=== PATIENT | male | born 1940 | race Caucasian/White ===

== ENCOUNTER 2021-08-04 09:34 | Day surgery (SDC) | payer MEDICARE, BC ==
[2021-08-04] VITALS (10 sets, daily range): BP systolic 125–144; BP diastolic 58–78
[~2021-08-04] VITALS: Ht 177.8 cm; Wt 92.0 kg
[2021-08-04] MEDS ORDERED: normal saline 1,000 ML IV SCH (09:55)
[2021-08-04] MEDS ORDERED: diphenhydrAMINE 25mg capsule PO PRN (09:55)
[2021-08-04] MEDS ORDERED: LANS30CA56 PO (10:35)
[2021-08-04] MEDS ORDERED: INSU100I31 SQ (10:35)
[2021-08-04] MEDS ORDERED: DILT-35 PO (10:35)
[2021-08-04] MEDS ORDERED: CAND32TA22 PO (10:35)
[2021-08-04] MEDS ORDERED: APIX5TAB3 PO (10:35)
[2021-08-04] MEDS ORDERED: TORS20TA3 PO (10:35)
[2021-08-04] MEDS ORDERED: SITA50TA PO (10:35)
[2021-08-04] MEDS ORDERED: TAMSULOSIN PO (10:35)
[2021-08-04] MEDS ORDERED: ATOR-2 PO (10:35)
[2021-08-04] MEDS ORDERED: NOVLG SQ (10:35)
[2021-08-04] MEDS ORDERED: POTASSIUM 8 MEQ PO (10:36)
[2021-08-04 10:45] LABS: EOSINOPHILS # (AUTO) 0.3 X10'3 (0-0.9); HEMOGLOBIN 11.9 g/dl (14.0-17.9); MEAN PLATELET VOLUME 8.6 FL (7.4-10.4); MONOCYTES # (AUTO) 0.5 X10'3 (0-0.9)
[2021-08-04 10:46] LABS: BASOPHILS # (AUTO) 0.1 X10'3 (0-0.2); BASOPHILS % (AUTO) 2.4 % (0-1); EOSINOPHILS % (AUTO) 5.4 % (0-6); HEMATOCRIT 35.1 % (42.0-52.0); LYMPHOCYTES # (AUTO) 0.3 X10'3 (1.1-4.8); LYMPHOCYTES % (AUTO) 5.8 % (21-51); MEAN CORPUSCULAR HEMOGLOBIN 29.7 PG (27.0-31.0); MEAN CORPUSCULAR HGB CONC 33.8 g/dL (33.0-36.5); MONOCYTES % (AUTO) 9.3 % (2-12); NEUTROPHILS # (AUTO) 4.5 X10'3 (1.8-7.7); NEUTROPHILS % (AUTO) 77.1 % (42-75); PLATELET COUNT 209 X10'3 (140-440); RED BLOOD COUNT 3.99 X10'6 (4.70-6.10); RED CELL DISTRIBUTION WIDTH 14.8 % (11.5-14.5); WHITE BLOOD COUNT 5.9 X10'3 (4.5-11.0)
[2021-08-04 10:52] LABS: ALBUMIN 3.4 G/DL (3.4-5.0); ANION GAP 7 (8-16); BLOOD UREA NITROGEN 29 MG/DL (7-18); BUN/CREATININE RATIO 20.9 (5.4-32.0); CALCIUM 8.6 MG/DL (8.5-10.1); CHLORIDE 102 MMOL/L (99-107); CREATININE 1.39 MG/DL (0.60-1.10); GLUCOSE 231 MG/DL (70-104); POTASSIUM 3.9 MMOL/L (3.5-5.1); SODIUM 136 MMOL/L (135-145); TOTAL CARBON DIOXIDE 26.6 MMOL/L (24-32); eGFR 49 ML/MIN
[2021-08-04] MEDS ORDERED: fentaNYL/PF 50MCG/1 ML 2ML syringe ONE (10:57)
[2021-08-04] MEDS ORDERED: iohexol 350MG/ML 100ml bottle IV ONE ×2 (10:57→12:25)
[2021-08-04] MEDS ORDERED: midazolam 1 mg/ML 2ml injection ONE ×2 (10:57→11:44)
[2021-08-04] MEDS ORDERED: LIDOcaine 1% (10mg/ml)w/preservative injection 20ml MDV ONE ×2 (10:57→11:44)
[2021-08-04] MEDS ORDERED: heparin 1,000unit/ml 10ml vial 10 ML ONE (10:57)
[2021-08-04] MEDS ORDERED: iohexol 350 MG/ML 50ML vial IV ONE (10:57)
[2021-08-04] MEDS ORDERED: ticagrelor 90mg tablet ONE (13:11)
[2021-08-04] MEDS ORDERED: proCHLORperazine 10 MG/2 ml inj IV PRN (13:50)
[2021-08-04] MEDS ORDERED: HYDROcodone/acetaminophen 5mg/325mg tablet PO PRN (13:50)
[2021-08-04] MEDS ORDERED: ondansetron/PF 4mg/2ml inj IV PRN (13:50)
[2021-08-04] MEDS ORDERED: HYDROcodone/acetaminophen 10/325mg tab PO PRN (13:50)
== END 2021-08-04 17:25 | disposition home or self-care (01) ==
LOC: SSTAY O 09:34
PROVIDERS: ATTEND Internal Medicine Cardiovascular Disease
DX: R07.89 Other chest pain (principal); R06.09 Other forms of dyspnea; I25.10 Atherosclerotic heart disease of native coronary artery without angina pectoris; I48.20 Chronic atrial fibrillation, unspecified; I08.3 Combined rheumatic disorders of mitral, aortic and tricuspid valves; I65.21 Occlusion and stenosis of right carotid artery; I10 Essential (primary) hypertension; E78.5 Hyperlipidemia, unspecified; E11.9 Type 2 diabetes mellitus without complications; Z79.899 Other long term (current) drug therapy
CPT/HCPCS: 80048; 82948; 83735; 85025; 85610; 93005; 93460; 93571; 93572; 99152; 99153; C1725; C1751; C1760; C1769; C1874; C1894; C9600; J1644; J2250; J3010; J3490; J7030; Q0163; Q9967; A4620; A6258

== ENCOUNTER 2021-09-29 09:30 | Outpatient (CLI) | payer MEDICARE, BC ==
[~2021-09-29] VITALS: Ht 175.3 cm; Wt 91.6 kg
[~2021-09-29 09:30] MED LIST: APIX5TAB3 PO; ATOR-2 PO; CAND32TA22 PO; DILT-35 PO; INSU100I31 SQ; LANS30CA56 PO; NOVLG SQ; POTASSIUM 8 MEQ PO; SITA50TA PO; TAMSULOSIN PO; TORS20TA3 PO
[2021-09-29 10:13] LABS: EOSINOPHILS # (AUTO) 0.2 X10'3 (0-0.9); LYMPHOCYTES # (AUTO) 0.2 X10'3 (1.1-4.8); MEAN CORPUSCULAR HGB CONC 32.9 g/dL (33.0-36.5); MEAN PLATELET VOLUME 8.1 FL (7.4-10.4); MONOCYTES # (AUTO) 0.6 X10'3 (0-0.9); RED BLOOD COUNT 3.02 X10'6 (4.70-6.10); RED CELL DISTRIBUTION WIDTH 16.9 % (11.5-14.5)
[2021-09-29 10:15] LABS: BASOPHILS # (AUTO) 0.1 X10'3 (0-0.2); BASOPHILS % (AUTO) 1.3 % (0-1); EOSINOPHILS % (AUTO) 2.4 % (0-6); HEMATOCRIT 26.4 % (42.0-52.0); HEMOGLOBIN 8.7 g/dl (14.0-17.9); LYMPHOCYTES % (AUTO) 3.8 % (21-51); MEAN CORPUSCULAR HEMOGLOBIN 28.8 PG (27.0-31.0); MEAN CORPUSCULAR VOLUME 87.6 FL (78-98); MONOCYTES % (AUTO) 9.4 % (2-12); NEUTROPHILS # (AUTO) 5.4 X10'3 (1.8-7.7); NEUTROPHILS % (AUTO) 83.1 % (42-75); PLATELET COUNT 232 X10'3 (140-440); WHITE BLOOD COUNT 6.5 X10'3 (4.5-11.0)
[2021-09-29 10:32] LABS: ALANINE AMINOTRANSFERASE 14 U/L (12-78); ALBUMIN 3.1 G/DL (3.4-5.0); ALKALINE PHOSPHATASE 122 IU/L (46-116); ANION GAP 7 (8-16); ASPARTATE AMINO TRANSFERASE 19 U/L (10-37); BILIRUBIN,TOTAL 1.5 MG/DL (0.1-1.0); BLOOD UREA NITROGEN 35 MG/DL (7-18); BUN/CREATININE RATIO 24.5 (5.4-32.0); CALCIUM 8.2 MG/DL (8.5-10.1); CHLORIDE 105 MMOL/L (99-107); CREATININE 1.43 MG/DL (0.60-1.10); GLUCOSE 194 MG/DL (70-104); POTASSIUM 3.8 MMOL/L (3.5-5.1); SODIUM 140 MMOL/L (135-145); TOTAL CARBON DIOXIDE 28.5 MMOL/L (24-32); TOTAL PROTEIN 6.3 G/DL (6.4-8.2); eGFR 47 ML/MIN
[2021-09-29 10:41] LABS: APTT 28 SECONDS (22-32)
[2021-09-29 10:49] LABS: ANISOCYTOSIS 1+; ELLIPTOCYTES 1+; PLATELET ESTIMATE NORMAL
[2021-09-29 10:50] LABS: BURR CELLS 1+
[2021-09-29 10:51] LABS: SCHISTOCYTES FEW
[2021-09-29] MEDS ORDERED: IODIXANOL 320 MG/ML INFUS..BTL 50ML IV ONE ×3 (11:45→12:40)
[2021-09-29] MEDS ORDERED: IODIXANOL 320 MG/ML INFUS..BTL 100ML IV ONE ×3 (11:45→12:40)
[2021-09-29] MEDS ORDERED: albuterol 2.5 MG/3 ML nebule NEB ONE (11:55)
== END 2021-09-29 23:59 | disposition home or self-care (01) ==
LOC: VAS 09:30
PROVIDERS: ATTEND Internal Medicine Cardiovascular Disease
DX: Z01.818 Encounter for other preprocedural examination (principal); I65.23 Occlusion and stenosis of bilateral carotid arteries; I74.3 Embolism and thrombosis of arteries of the lower extremities; K80.20 Calculus of gallbladder without cholecystitis without obstruction; N28.1 Cyst of kidney, acquired; I70.0 Atherosclerosis of aorta; K42.9 Umbilical hernia without obstruction or gangrene; M51.36 Other intervertebral disc degeneration, lumbar region; N32.3 Diverticulum of bladder; I70.8 Atherosclerosis of other arteries; I70.1 Atherosclerosis of renal artery; K55.1 Chronic vascular disorders of intestine; E04.2 Nontoxic multinodular goiter; R91.1 Solitary pulmonary nodule; R59.0 Localized enlarged lymph nodes; J98.11 Atelectasis; J90 Pleural effusion, not elsewhere classified; I51.7 Cardiomegaly; Z20.822 Contact with and (suspected) exposure to COVID-19; Z79.899 Other long term (current) drug therapy
CPT/HCPCS: 36415; 71046; 71275; 74174; 80053; 85008; 85025; 85610; 85730; 87635; 93880; 94060; 94727; 94729; 94760; C9803; Q9967

== ENCOUNTER 2021-10-19 12:34 | Outpatient (CLI) | payer MEDICARE, BC ==
[~2021-10-19] VITALS: Ht 177.8 cm; Wt 90.4 kg
[2021-10-19 13:46] LABS: BASOPHILS # (AUTO) 0.1 X10'3 (0-0.2); BASOPHILS % (AUTO) 1.9 % (0-1); EOSINOPHILS # (AUTO) 0.2 X10'3 (0-0.9); EOSINOPHILS % (AUTO) 2.8 % (0-6); HEMATOCRIT 29.2 % (42.0-52.0); HEMOGLOBIN 9.3 g/dl (14.0-17.9); LYMPHOCYTES # (AUTO) 0.3 X10'3 (1.1-4.8); LYMPHOCYTES % (AUTO) 4.4 % (21-51); MEAN CORPUSCULAR HEMOGLOBIN 26.8 PG (27.0-31.0); MEAN CORPUSCULAR HGB CONC 31.9 g/dL (33.0-36.5); MEAN CORPUSCULAR VOLUME 83.9 FL (78-98); MEAN PLATELET VOLUME 8.3 FL (7.4-10.4); MONOCYTES # (AUTO) 0.6 X10'3 (0-0.9); NEUTROPHILS # (AUTO) 5.7 X10'3 (1.8-7.7); NEUTROPHILS % (AUTO) 82.9 % (42-75); PLATELET COUNT 185 X10'3 (140-440); RED BLOOD COUNT 3.47 X10'6 (4.70-6.10); RED CELL DISTRIBUTION WIDTH 16.9 % (11.5-14.5); WHITE BLOOD COUNT 6.9 X10'3 (4.5-11.0)
[2021-10-19 14:29] VITALS: BP 146/69
--- NOTE | 2021-10-19 14:30 | NUR ---
Patient and his daughter were in the [facility] clinic today to consult with Dr. Barillas, Dr. James Gleason and Dr. Melara. [id number] completed. Vital signs measured. Patient education reviewed and questions answered.
[2021-10-19 14:31] VITALS: BP 126/59
[2021-10-26] MEDS ORDERED: APIX2.5T PO (10:25)
[2021-10-26] MEDS ORDERED: FLO0.4C PO (10:25)
[2021-10-26] MEDS ORDERED: CLOP75TA9 PO (13:02)
[2021-11-01] MEDS ORDERED: POTA8CAP20 PO (11:19)
== END 2021-10-19 23:59 | disposition home or self-care (01) ==
LOC: TAVR 12:34
PROVIDERS: ATTEND Internal Medicine Cardiovascular Disease
DX: I35.0 Nonrheumatic aortic (valve) stenosis (principal); R06.02 Shortness of breath; I65.29 Occlusion and stenosis of unspecified carotid artery
CPT/HCPCS: 36415; 85025

== ENCOUNTER 2021-11-02 06:29 | Inpatient (IN) | payer MEDICARE, BC ==
[2021-10-26 11:19] LABS: BASOPHILS # (AUTO) 0.1 X10'3 (0-0.2); EOSINOPHILS # (AUTO) 0.2 X10'3 (0-0.9); LYMPHOCYTES # (AUTO) 0.3 X10'3 (1.1-4.8); MONOCYTES # (AUTO) 0.5 X10'3 (0-0.9); NEUTROPHILS # (AUTO) 4.3 X10'3 (1.8-7.7); RED CELL DISTRIBUTION WIDTH 18.3 % (11.5-14.5)
[2021-10-26 11:21] LABS: EOSINOPHILS % (AUTO) 4.2 % (0-6); LYMPHOCYTES % (AUTO) 5.5 % (21-51); MEAN CORPUSCULAR HEMOGLOBIN 27.4 PG (27.0-31.0); MEAN CORPUSCULAR HGB CONC 32.8 g/dL (33.0-36.5); MEAN CORPUSCULAR VOLUME 83.6 FL (78-98); MEAN PLATELET VOLUME 8.5 FL (7.4-10.4); MONOCYTES % (AUTO) 9.4 % (2-12); NEUTROPHILS % (AUTO) 78.9 % (42-75); PRE OP HEMATOCRIT 31.5 % (42.0-52.0); PRE OP PLATELET COUNT 196 X10'3 (140-440); RED BLOOD COUNT 3.77 X10'6 (4.70-6.10)
[2021-10-26 11:27] LABS: CLARITY,URINE CLEAR (Clear); GLUCOSE, URINE NEGATIVE (Neg); KETONES,URINE NEGATIVE (Neg); LEUKOCYTE ESTERASE ,URINE NEGATIVE (Neg); NITRITES, URINE NEGATIVE (Neg); OCCULT BLOOD,URINE NEGATIVE (Neg); PH,URINE 6.5 (4.8-8.0); PROTEIN,URINE NEGATIVE (Neg); UROBILINOGEN,URINE 0.2 E.U/dL (0.2-1.0)
[2021-10-26 11:36] LABS: COLOR,URINE STRAW (Yellow); UA COLLECTION TYPE CLN CATCH MIDSTREAM
[2021-10-26 11:39] LABS: ALBUMIN 3.5 G/DL (3.4-5.0); ALKALINE PHOSPHATASE 103 IU/L (46-116); BLOOD UREA NITROGEN 33 MG/DL (7-18); BUN/CREATININE RATIO 22.8 (5.4-32.0); CALCIUM 8.6 MG/DL (8.5-10.1); CHLORIDE 98 MMOL/L (99-107); CREATININE 1.45 MG/DL (0.60-1.10); PRE OP ALT 11 U/L (30-65); PRE OP AST 17 U/L (10-37); PRE OP BILIRUB, TOTAL 1.3 MG/DL (0.0-1.0); PRE OP POTASSIUM 3.6 MMOL/L (3.4-5.1); PRE OP SODIUM 134 MMOL/L (135-145); TOTAL PROTEIN 7.1 G/DL (6.4-8.2); eGFR 46 ML/MIN
[2021-10-26 11:42] LABS: PRE OP INR 1.2 INR; PRE OP PROTIME 11.9 SECONDS (9.0-12.0)
[2021-10-26 11:50] LABS: ANISOCYTOSIS 2+; BURR CELLS 1+; ELLIPTOCYTES 1+; PLATELET ESTIMATE NORMAL; TOTAL CELLS COUNTED 100
[2021-10-26 11:51] LABS: SCHISTOCYTES FEW
[2021-10-26 11:57] LABS: PRE OP ANION GAP 11 (8-16); TOTAL CARBON DIOXIDE 24.6 MMOL/L (24-32)
[2021-10-26 12:03] LABS: HEMOGLOBIN A1C 8.3 % (4.5-6.2)
[2021-10-26 12:08] LABS: PRE OP GLUCOSE 228 MG/DL (70-104)
[2021-10-26 13:10] LABS: PRE OP HEMOGLOBIN 10.3 g/dL (14.0-17.9)
[2021-11-02] VITALS (21 sets, daily range): BP systolic 98–149; BP diastolic 41–68
[~2021-11-02] VITALS: Ht 177.8 cm; Wt 89.1 kg
[~2021-11-02 06:29] MED LIST changes: +APIX2.5T PO; -APIX5TAB3 PO; +CLOP75TA9 PO; -DILT-35 PO; +FLO0.4C PO; +POTA8CAP20 PO; -POTASSIUM 8 MEQ PO; -SITA50TA PO; -TAMSULOSIN PO; +aspirin 325mg tablet PO ONE; +cefazolin/dext.iso 2gm/50ml 50 ML IV ONE; +famotidine 20mg tablet PO ONE; +nitroPRUSSIDE sod inj. 50 MG in dextrose 5%-water 248 ML IV SCH; +ondansetron/PF 4mg/2ml inj IV PRN; +phenylephrine 50 MG in NS 250ml IVPB IV SCH; +ringers solution, lacted 1,000 ML IV SCH
[2021-11-02] MEDS ORDERED: protamine sulfate 10mg/ml inj. ONE (06:36)
--- NOTE | 2021-11-02 07:04 | NUR ---
PY BS 374 AT 0703. PT STATES HIS BS WAS "HIGH 300'S" AT 0500 AND HE TOOK NOVOLOG [address] BASHIR OF BS. NO ORDERS RECEIVED.
[2021-11-02] MEDS ORDERED: iohexol 350 MG/ML 50ML vial IV ONE (08:52)
[2021-11-02] MEDS ORDERED: iohexol 350MG/ML 100ml bottle IV ONE (08:52)
[2021-11-02] MEDS ORDERED: LIDOCAINE 1% w/preservative (10 MG/ML) inj. 10mL VIAL ONE (08:52)
[2021-11-02] MEDS ORDERED: heparin 1,000 UNITS/NS 500ml 1,500 ML ONE (08:52)
[2021-11-02] MEDS ORDERED: morphine 2 MG/ML inj. syringe IV PRN (09:00)
[2021-11-02] MEDS ORDERED: fentaNYL/PF 50MCG/1 ML 2ML syringe IV PRN ×2 (09:00)
[2021-11-02] MEDS ORDERED: ondansetron/PF 4mg/2ml inj IV PRN ×2 (09:00→10:15)
[2021-11-02] MEDS ORDERED: hydrALAZINE 20mg/ml inj. IV PRN ×2 (09:00→10:15)
[2021-11-02] MEDS ORDERED: morphine 4 MG/ML inj SYRINge IV PRN (09:00)
[2021-11-02] MEDS ORDERED: labetalol 20mg/4ml (5mg/ml) syringe IV PRN ×2 (09:00→10:15)
[2021-11-02] MEDS ORDERED: ringers solution, lacted 1,000 ML IV SCH (09:00)
[2021-11-02] MEDS ORDERED: MIDAZolam 1 MG/ML 5ML VIAL ONE (09:03)
[2021-11-02] MEDS ORDERED: fentaNYL/PF 50MCG/1 ML 2ML syringe ONE (09:03)
[2021-11-02] MEDS ORDERED: proCHLORperazine 10 MG/2 ml inj IV PRN (10:15)
[2021-11-02] MEDS ORDERED: DEXTROSE 15 GM of carb/4 tabs (each vial/BOTTLE has 4 tablets) PO PRN ×2 (10:15)
[2021-11-02] MEDS ORDERED: glucagon, human recombinant 1mg kit SUBCUT PRN (10:15)
[2021-11-02] MEDS ORDERED: insulin regular, human U-100 3ml vial - multi-dose SQ SCH (10:15)
[2021-11-02] MEDS ORDERED: ALPRAZolam 0.25mg tablet PO PRN (10:15)
[2021-11-02] MEDS ORDERED: MESSAGE TO PHARMACY PO ONE (10:15)
[2021-11-02] MEDS ORDERED: dextrose 50%-water 50ml dispensing syringe IV PRN ×2 (10:15)
[2021-11-02] MEDS ORDERED: acetaminophen 325mg tablet PO PRN (10:15)
[2021-11-02] MEDS ORDERED: docusate sod 100mg capsule PO PRN (10:15)
[2021-11-02] MEDS ORDERED: diphenhydrAMINE 25mg capsule PO PRN (10:15)
--- NOTE | 2021-11-02 10:31 | NUR ---
Received from OR via BED , accompanied by Anesthesiologist DR. BOGGS and report given by Anesthesiolgist. PT IS AWAKE AND TALKING. DENIES PAIN AT THIS TIME, RIGHT POSTERIOR TIBIAL PULSES BY DOPPLER LEFT POSTERIOR TIBIAL PULSES PALPABLE.RIGHT GROIN SITE, SOFT, DRESSING DRY AND INTACT.
--- NOTE | 2021-11-02 11:43 | NUR ---
PTS DRIPS STOPPED, BLOOD PRESSURE REMAINS STABLE AT THIS TIME. NO SIGNS OF BLEEDING IN LEFT GROIN, DRESSING REMAINS DRY AND INTACT. DISTAL PULSES REMAIN UNCHANGED.
--- NOTE | 2021-11-02 12:11 | NUR ---
PT TRANSFERRED TO ROOM 3015 PCU UNIT. REPORT GIVEN TO ROSETTE, PT TRANSFERRED WITH OXYGEN, CARDIAC, BP AND PULSE OX MONITOR. FAMILY NOTIFIED OF TRANSFER FROM THE WAITING ROOM. PT REMAINS ALERT AND ORIENTED AND PAINFREE. NO SIGNS OF BLEEDING OR SWELLING IN THE GROIN AREA.
--- NOTE | 2021-11-02 12:37 | NUR ---
Teodoro Evanstune 3015A up from recovery with an elevated blood sugar. could we get his insulin delivered by chance? Thank you, Adriana CALDERON Addendum: 11/02/21 at 1237 by Adriana Swift RN Message to pharmacy
[2021-11-02] MEDS: normal saline 1000ml 1,000 ML IV SCH ×2 (12:38→20:06)
[2021-11-02] MEDS: insulin Lispro (HumaLOG) vial - multi-dose SQ SCH ×3 (13:26→21:34)
[2021-11-02] MEDS: HYDROcodone/acetaminophen 5mg/325mg tablet PO PRN (13:56)
[2021-11-02] MEDS: sod chloride 0.9% 10ml flush syringe IV SCH (16:00)
[2021-11-02] MEDS: ceFAZolin 1GM/D5W- ADD-VANTAGE 50 ML IV SCH ×2 (16:29→23:55)
--- NOTE | 2021-11-02 18:00 | NUR ---
Patient in room PCU 3015. I have received report from Adriana BELTRÁN and had the opportunity to ask questions and assume patient care.
--- NOTE | 2021-11-02 18:37 | NUR ---
Problems reprioritized. Patient report given, questions answered & plan of care reviewed with Caridad BELTRÁN.
[2021-11-02] MEDS: vancomycin/NS 1 GM ADD-VANTAGE 250 ML IV SCH (20:06)
[2021-11-02] MEDS ORDERED: insulin glargine (Lantus) pen - multi-dose SQ SCH (21:00)
[2021-11-03] MEDS: sod chloride 0.9% 10ml flush syringe IV SCH ×2 (00:06→08:14)
[2021-11-03 06:06] VITALS: BP 114/44
[2021-11-03 06:36] LABS: BASOPHILS # (AUTO) 0.1 X10'3 (0-0.2); BASOPHILS % (AUTO) 1.3 % (0-1); EOSINOPHILS # (AUTO) 0.2 X10'3 (0-0.9); EOSINOPHILS % (AUTO) 2.3 % (0-6); HEMATOCRIT 28.6 % (42.0-52.0); HEMOGLOBIN 9.3 g/dl (14.0-17.9); LYMPHOCYTES # (AUTO) 0.2 X10'3 (1.1-4.8); LYMPHOCYTES % (AUTO) 2.5 % (21-51); MEAN CORPUSCULAR HEMOGLOBIN 27.8 PG (27.0-31.0); MEAN CORPUSCULAR HGB CONC 32.7 g/dL (33.0-36.5); MEAN CORPUSCULAR VOLUME 85.2 FL (78-98); MEAN PLATELET VOLUME 8.8 FL (7.4-10.4); MONOCYTES # (AUTO) 0.7 X10'3 (0-0.9); MONOCYTES % (AUTO) 8.4 % (2-12); NEUTROPHILS # (AUTO) 6.8 X10'3 (1.8-7.7); NEUTROPHILS % (AUTO) 85.5 % (42-75); PLATELET COUNT 157 X10'3 (140-440); RED BLOOD COUNT 3.35 X10'6 (4.70-6.10); RED CELL DISTRIBUTION WIDTH 19.3 % (11.5-14.5)
--- NOTE | 2021-11-03 06:36 | NUR ---
Problems reprioritized. Patient report given, questions answered & plan of care reviewed with CASEY BELTRÁN.
[2021-11-03 06:54] LABS: ALANINE AMINOTRANSFERASE 10 U/L (12-78); ALBUMIN 2.8 G/DL (3.4-5.0); ALKALINE PHOSPHATASE 83 IU/L (46-116); ANION GAP 9 (8-16); ASPARTATE AMINO TRANSFERASE 17 U/L (10-37); BILIRUBIN,TOTAL 1.7 MG/DL (0.1-1.0); BLOOD UREA NITROGEN 32 MG/DL (7-18); BUN/CREATININE RATIO 24.8 (5.4-32.0); CALCIUM 7.8 MG/DL (8.5-10.1); CHLORIDE 105 MMOL/L (99-107); CREATININE 1.29 MG/DL (0.60-1.10); GLUCOSE 312 MG/DL (70-104); MAGNESIUM 1.9 MG/DL (1.5-2.4); POTASSIUM 3.9 MMOL/L (3.5-5.1); SODIUM 137 MMOL/L (135-145); TOTAL CARBON DIOXIDE 22.8 MMOL/L (24-32); TOTAL PROTEIN 5.7 G/DL (6.4-8.2); eGFR 53 ML/MIN
[2021-11-03] MEDS: normal saline 1000ml 1,000 ML IV SCH (08:10)
[2021-11-03] MEDS: vancomycin/NS 1 GM ADD-VANTAGE 250 ML IV SCH (08:14)
[2021-11-03] MEDS: ceFAZolin 1GM/D5W- ADD-VANTAGE 50 ML IV SCH (08:14)
[2021-11-03] MEDS: insulin Lispro (HumaLOG) vial - multi-dose SQ SCH ×2 (08:26→08:29)
[2021-11-03] MEDS: HYDROcodone/acetaminophen 5mg/325mg tablet PO PRN (09:12)
--- NOTE | 2021-11-03 11:20 | NUR ---
Pt amb nursing home around loop approximately 150 feet.
[2021-11-03 11:26] VITALS: BP 127/43
== END 2021-11-03 13:48 | disposition home or self-care (01) | DRG 266 ==
LOC: PAS IN 06:29 → PCU 3S 12:23
PROVIDERS: ADMIT Internal Medicine Cardiovascular Disease; ATTEND Internal Medicine Cardiovascular Disease
PROC: B41D1ZZ Fluoroscopy of Aorta and Bilateral Lower Extremity Arteries using Low Osmolar Contrast (ICD-10-PCS; 2021-11-02)
PROC: 5A1223Z Performance of Cardiac Pacing, Continuous (ICD-10-PCS; 2021-11-02)
PROC: X2RF332 Replacement of Aortic Valve using Zooplastic Tissue, Rapid Deployment Technique, Percutaneous Approach, New Technology Group 2 (ICD-10-PCS; principal; 2021-11-02 09:01)
DX: I35.0 Nonrheumatic aortic (valve) stenosis (principal); I77.77 Dissection of artery of lower extremity; I48.20 Chronic atrial fibrillation, unspecified; I25.10 Atherosclerotic heart disease of native coronary artery without angina pectoris; Z79.01 Long term (current) use of anticoagulants; Z00.6 Encounter for examination for normal comparison and control in clinical research program; Z98.61 Coronary angioplasty status
CPT/HCPCS: 33361; 36415; 71045; 76937; 80053; 81003; 82948; 83036; 83735; 83880; 85007; 85025; 85347; 85610; 85730; 86885; 86900; 86901; 86920; 87081; 93005; 93308; A4618; A6258; A6449; C1760; C1769; C1894; G0378; J0690; J1644; J1815; J2250; J2370; J2720; J3010; J3370; J3490; J7030; J7040; J7050; J7060; J7120; Q9967; U0003; U0005